=== PATIENT | female | born 1985 | race Caucasian/White ===

== ENCOUNTER 2016-09-16 20:14 | Emergency (ER) | payer OTHER ==
[~2016-09-16] VITALS: Ht 162.6 cm; Wt 85.2 kg
[~2016-09-16 20:14] MED LIST: ALLEGRA ALLERG180 MG PO; BENADRYL50 MG PO; DAILY VITE1 EAC1 PO; FLONASE ALLERG9.9 ML BOTH NARES; IMITREX100 MG PO; MAKENA250 MG/1 M IM; MOTRIN600 MG PO; NORCO 5/3251 TABLET PO; PREDNISONE20 MG PO; PRENATAL TABLE1 EAC3 PO; PROMETHAZINE HC25 M1 PO; SPRINTEC1 EACH PO; WESTCORT15 G1 TP; ZOLOFT50 MG PO
[2016-09-16] MEDS ORDERED: NAPROSYN500 MG PO (21:32)
[2016-09-16 21:48] VITALS: BP 112/71
== END 2016-09-16 21:51 | disposition home or self-care (01) ==
LOC: EXP 20:14 → EME 20:14 → EXP 21:51
DX: M25.561 Pain in right knee (principal); Z91.040 Latex allergy status; Z91.048 Other nonmedicinal substance allergy status; F17.200 Nicotine dependence, unspecified, uncomplicated
CPT/HCPCS: 73564; 99281; 99283

== ENCOUNTER 2017-10-06 00:44 | Emergency (ER) | payer OTHER ==
[~2017-10-06] VITALS: Ht 162.6 cm; Wt 85.1 kg
[~2017-10-06 00:44] MED LIST changes: +NAPROSYN500 MG PO
[2017-10-06] MEDS ORDERED: BACTRIM,SEPT1 TABLET PO (02:36)
[2017-10-06] MEDS ORDERED: KEFLEX500 MG PO (02:36)
[2017-10-06] MEDS ORDERED: ULTRAM50 MG PO (02:37)
[2017-10-06] MEDS ORDERED: MOTRIN600 MG PO (02:37)
[2017-10-06 03:03] VITALS: BP 112/92
== END 2017-10-06 03:05 | disposition home or self-care (01) ==
LOC: EME 00:44
PROC: 0H98XZZ Drainage of Buttock Skin, External Approach (ICD-10-PCS; principal; 2017-10-06)
DX: L05.01 Pilonidal cyst with abscess (principal); Z86.14 Personal history of Methicillin resistant Staphylococcus aureus infection; Z79.3 Long term (current) use of hormonal contraceptives; F17.200 Nicotine dependence, unspecified, uncomplicated
CPT/HCPCS: 87070; 87075; 87076; 87185; 87205; 99281; 99283